=== PATIENT | female | born 1950 | race Two or more races ===

== ENCOUNTER 2016-06-30 18:32 | Emergency (ER) | payer SELFPAY ==
[~2016-06-30] VITALS: Ht 165.1 cm; Wt 49.2 kg
[2016-06-30 18:39] VITALS: BP 126/80
[2016-06-30] MEDS ORDERED: ALBUTEROL/IPRATROPIUM 2.5MG/0.5MG, 3 ML NPPB SCH (19:00)
== END 2016-06-30 19:13 | disposition other institution (70) ==
LOC: ED 19:07
DX: J44.9 Chronic obstructive pulmonary disease, unspecified (principal)
CPT/HCPCS: 93005; 99281